=== PATIENT | female | born 1970 | race Caucasian/White ===

== ENCOUNTER → 2017-05-08 | Outpatient (REF) | payer BC, OTHER | LOC: M LAB REF 16:35 | PROVIDERS: ATTEND Physician Assistant | DX: R30.0 Dysuria (principal) ==

== ENCOUNTER → 2020-09-26 | Outpatient (CLI) | payer OTHER ==
--- NOTE | 2020-09-26 09:11 | REP ---
INDICATION: NECK PAIN. COMPARISON: None. TECHNIQUE: Seven views including flexion and extension. FINDINGS: Vertebral body heights, interspacing and alignment are normal. There is no listhesis on flexion or extension. The facets are normally aligned. The prevertebral soft tissues are unremarkable. The odontoid view is unremarkable. There is no bony foraminal encroachment. IMPRESSION: Essentially negative plain film study of the cervical spine. <Electronically signed by Leon Dumont > 09/26/20 0981
--- NOTE | 2020-09-26 09:14 | REP ---
INDICATION: NECK PAIN/OCCIPITAL PAIN. COMPARISON: None. TECHNIQUE: There are five views: FINDINGS: The calvarium is unremarkable. The skull base and sella are unremarkable. There are no calcifications. The paranasal sinuses are unremarkable. IMPRESSION: Essentially negative skull series. <Electronically signed by Leon Dumont > 09/26/20 0948
== END ==
LOC: M CLY 08:11
PROVIDERS: ATTEND Nurse Practitioner Family
DX: M54.2 Cervicalgia (principal); R51.9 Headache, unspecified

== ENCOUNTER → 2021-02-10 | Outpatient (CLI) | payer OTHER ==
[~2021-02-10] MED LIST: ACET325C5 PO; ALL10TAB2 PO; CALCCHW4 PO; FLON27.5 NARES; VITMTA PO
[2021-02-10 16:57] VITALS: BP 140/84
--- NOTE | 2021-02-11 09:03 | REP ---
INDICATION: R92.8 ABN RIGHT BREAST MAMMO/STEREO BX/CK CLIP PLACEMT. COMPARISON: N\A TECHNIQUE: Stereotactic images were obtained for Dr. Mathias who performed a stereotactic biopsy. The examination was performed in my absence. FINDINGS: The specimen radiograph shows calcifications within the specimen. IMPRESSION: As above <Electronically signed by Yordy Cortez > 02/11/21 0859
--- NOTE | 2021-02-11 18:03 | ROOPDOC ---
[facility] Report Of Operation Report of Operation DATE OF PROCEDURE: 02/10/21 DIAGNOSIS: Right breast suspicious calcifications PROCEDURE: Right breast stereotactic biopsy with clip placement SURGEON: Jennifer Florentino BLOOD LOSS: minimal Lidocaine 1% LOT [id number] Expiration 09/2021 Sodium Bicarbonate 8.4% LOT [id number] Expiration 11/2021 Hydromark clip LOT [id number] Expiration 10/2023 SHAPE : 3 Bx device: Stereotactic Mammotome Revolve Dual Vacuum- assisted Biopsy System 10 G LOT [id number] Expiration 12/2023 REF [id number] Informed consent was obtained in the preop area. The most common risk and possible complications including bleeding, hematoma, bruising, infection, injury to surrounding structures were explained to the patient and patient expressed understanding. Patient was taken to the procedure room and placed prone on the [employer] [facility] Prone Breast Biopsy table with the right breast hanging through the table aperture. Right breast was placed into Cranio-Caudal compression. We had some problems identifying the suspicious calcifications initially however the cluster of pleomorphic calcifications was identified on [employer] tamara images. The target was set. CC approach from the top was chosen for this procedure. At this time, since we were able to confirm visibility of the suspicious calcifications and patient tolerated prone positioning allowing to proceed with the biopsy, appropriate time out was done stating patients name, date of , and the procedure to be performed. The right breast in CC compression was prepped in the usual fashion. Plain Lidocaine 1% and 8.4% sodium bicarbonate 10:1 mix was used to anesthetize the skin, the biopsy site and tissues along the anticipated biopsy tract. Small skin incision was made with blade number 11. Mammotome 10 G stereotactic breast biopsy device was inserted through the incision and advanced to the previously set coordinates marking the target lesion. Pre-fire imaging was taken to assure appropriate positioning. At this time, Mammotome 10 G breast biopsy device was fired and vacuum assisted biopsies were collected. The biopsy samples were investigated with [employer] system and calcifications were observed. Biopsy samples were then placed in the formaldehyde, marked with patients name and right breast biopsy site, and sent to pathology for evaluation. SHAPE 3 Hydromark clip was placed into the Mammotome biopsy device channel and deployed. Post-deployment imaging was done to assure appropriate clip deplo yment. Clip was noted in the right breast. At this point, paddle CC compression of the right breast was released and manual pressure was held to decrease harmonic effect and to assure hemostasis. No bleeding was noted upon removal of the pressure. Patient was slowly repositioned and placed into sitting position, and then assisted off the table. Post-biopsy mammogram of the right breast was obtained and showed clip in the right breast however the clip appears more posterior on CC view than expected. Postprocedural dressing was placed. Patient tolerated procedure well and was taken to the recovery unit in stable condition. Discharge instructions were discussed with the patient and patient expressed understanding. JENNIFER FLORENTINO DO February 11, 2021 18:03
== END ==
LOC: M WHCPRO 07:25
PROVIDERS: ATTEND Surgery
DX: N60.11 Diffuse cystic mastopathy of right breast (principal); R92.8 Other abnormal and inconclusive findings on diagnostic imaging of breast

== ENCOUNTER → 2021-08-11 | Outpatient (CLI) | payer OTHER ==
--- NOTE | 2021-08-11 09:36 | REP ---
INDICATION: RIGHT BREAST 6 MONTH FOLLOW UP ASSESS STABILITY OF LESION. COMPARISON: 02/10/2021, 01/06/2021, 12/20/2020, 12/15/2019, 08/18/2012, 08/12/2012. TECHNIQUE: MLO and CC views right breast with tomosynthesis. FINDINGS: Moderate heterogeneous fibroglandular tissue is present. This is unchanged. There is no new mass. There is a grouping of a few punctate calcifications in the outer right breast which has remained stable since 2011. No new clusters of suspicious microcalcifications are seen. A biopsy clip is seen superiorly in the right breast. IMPRESSION: BIRADS/ACR category 2, benign. Stable appearance of the right breast. No new mass or clustered microcalcifications. This mammogram was interpreted with the aid of an FDA-approved computer-aided detection system. The patient letter being requested is M 1. RECOMMENDATION: Repeat screening mammography recommended in December 2021. <Electronically signed by Leon Wood > 08/11/21 0932
== END ==
LOC: M WHC 08:33
PROVIDERS: ATTEND Surgery
DX: R92.8 Other abnormal and inconclusive findings on diagnostic imaging of breast (principal)
CPT/HCPCS: 77065; G0279

== ENCOUNTER → 2023-08-13 | Outpatient (CLI) | payer OTHER ==
[~2023-08-13] MED LIST changes: +ISOVUE-370 76% 100ML VIAL ONE
== END ==
LOC: M PLAIMG 09:49
PROVIDERS: ATTEND Otolaryngology
DX: D49.0 Neoplasm of unspecified behavior of digestive system (principal)
CPT/HCPCS: 70480; 70491; Q9967

== ENCOUNTER → 2024-03-10 | Outpatient (REF) | payer OTHER ==
[~2024-03-10] MED LIST changes: -ISOVUE-370 76% 100ML VIAL ONE
[2024-03-10 12:08] LABS: HEMATOCRIT 41.7 % (36.0-47.0); MEAN CORPUSCULAR HEMOGLOBIN 30.5 pg (27.0-33.0); MEAN CORPUSCULAR HGB CONC 33.6 g/dl (32.0-36.5); MEAN CORPUSCULAR VOLUME 90.8 fl (80.0-96.0); PLATELET COUNT, AUTOMATED 200 10^3/uL (150-450); RED BLOOD COUNT 4.59 10^6/uL (4.00-5.40); WHITE BLOOD COUNT 4.3 10^3/uL (4.0-10.0)
[2024-03-10 12:16] LABS: THYROID STIMULATING HORMONE 0.818 uIU/ML (0.55-4.78)
[2024-03-10 12:17] LABS: ALBUMIN 3.8 G/DL (3.2-5.2); ALKALINE PHOSPHATASE 63 U/L (46-116); ALT/SGPT 24 U/L (7.0-40); AST/SGOT 18 U/L (<34); BILIRUBIN,TOTAL 0.6 MG/DL (0.3-1.2); BLOOD UREA NITROGEN 10 MG/DL (9-23); CALCIUM LEVEL 9.1 MG/DL (8.5-10.1); CARBON DIOXIDE LEVEL 28 MMOL/L (20-31); CHLORIDE LEVEL 104 MMOL/L (98-107); CHOLESTEROL LEVEL 198 MG/DL (<200); CHOLESTEROL RISK RATIO 2.42 (<5); CREATININE FOR GFR 0.62 MG/DL (0.55-1.30); FREE T4 1.02 NG/DL (0.89-1.76); GLOMERULAR FILTRATION RATE > 60.0 (>51); GLUCOSE, FASTING 71 MG/DL (60-100); HDL CHOLESTEROL 81.5 MG/DL (>40); LDL CHOLESTEROL 106.7 MG/DL (<100); NON-HDL-C 116.5 MG/DL; POTASSIUM SERUM 3.9 MMOL/L (3.5-5.1); SODIUM LEVEL 140 MMOL/L (136-145); TOTAL PROTEIN 6.8 G/DL (5.7-8.2); TRIGLYCERIDES LEVEL 49 MG/DL (<150)
[2024-03-10 12:20] LABS: TOTAL T3 112.3 NG/DL (60.0-181.0)
== END ==
LOC: M SFHCCLAY 07:58
PROVIDERS: ATTEND Family Medicine
DX: R03.0 Elevated blood-pressure reading, without diagnosis of hypertension (principal); Z13.220 Encounter for screening for lipoid disorders; Z13.29 Encounter for screening for other suspected endocrine disorder